=== PATIENT | male | born 1950 | race Caucasian/White ===

== ENCOUNTER 2022-03-01 11:47 | Outpatient (CLI) | payer OTHER | END 2022-03-01 11:48 | disposition home or self-care (01) | LOC: SCSMRI 11:47 | PROVIDERS: ATTEND Otolaryngology Plastic Surgery within the Head & Neck | DX: Q85.02 Neurofibromatosis, type 2 (principal) | CPT/HCPCS: 70551; 82565 ==

== ENCOUNTER 2022-05-05 14:00 | Outpatient (CLI) | payer OTHER | END 2022-05-05 23:59 | disposition home or self-care (01) | LOC: CTENTCT 14:00 | PROVIDERS: ATTEND Otolaryngology Plastic Surgery within the Head & Neck | DX: J32.9 Chronic sinusitis, unspecified (principal) | CPT/HCPCS: 70486 ==

== ENCOUNTER 2022-07-08 15:47 | Outpatient (CLI) | payer OTHER ==
[2022-07-08 16:31] LABS: Hemoglobin 14.1 g/dL (13.5-17.5)
[2022-07-08 16:58] LABS: Anion Gap 13 mmol/L (10-20); BUN (Urea Nitrogen) 13 mg/dL (8.4-25.7); Calc. Creatinine Clearance 0 mL/min (70-130); Calcium 9.5 mg/dL (7.8-10.44); Carbon Dioxide 30 mmol/L (23-31); Chloride 101 mmol/L (98-107); Estimated GFR 96; Glucose 99 mg/dL (83-110); Potassium 4.3 mmol/L (3.5-5.1); Sodium 140 mmol/L (136-145)
== END 2022-07-08 15:48 | disposition home or self-care (01) ==
LOC: LABBT 15:47
PROVIDERS: ATTEND Otolaryngology Plastic Surgery within the Head & Neck
DX: Z01.812 Encounter for preprocedural laboratory examination (principal); J32.9 Chronic sinusitis, unspecified; J30.9 Allergic rhinitis, unspecified; J34.3 Hypertrophy of nasal turbinates; J39.2 Other diseases of pharynx; H90.3 Sensorineural hearing loss, bilateral; H69.80 Other specified disorders of Eustachian tube, unspecified ear
CPT/HCPCS: 80048; 85014; 85018; 93005; 93010